=== PATIENT | female | born 1960 | race Caucasian/White ===

== ENCOUNTER → 2021-07-11 09:09 | Outpatient (CLI) | payer BC, SELFPAY ==
--- NOTE | ~2021-07-11 | CT_ITS ---
EXAMINATION: CT lumbar spine wo con DATE: 07/11/2021 09:31 INDICATION: Lumbar radiculopathy. Lumbar degenerative disc disease. TECHNIQUE: Computed tomography (CT) of the lumbar spine was performed without intravenous contrast. A utomated exposure control and iterative reconstruction technique were employed. The dose-length produ ct was 820.69 mGy-cm. COMPARISON: Lumbar spine radiographs 12/10/2003 FINDINGS: There are low-attenuation masses in the adrenal glands measuring up to 2.4 cm on the right, consistent with adenomas. There is 7 degrees levocurvature of lumbar spine. There is 4 mm retrolisth esis of L2 on L3 and L5 on S1. There is moderately decreased disc height at L1-L2 and L2-L3, mildly d ecreased disc height at L3-L4, and severely decreased disc height at L5-S1. The following disc levels are specifically discussed: L1-L2: The disc is bulging with superimposed left central extrusion. There is mild bilateral facet petra int osteoarthritis. There is mild left neural foraminal stenosis. There is mild central canal stenosi s. L2-L3: The disc is bulging. There is mild bilateral facet joint osteoarthritis. There is moderate patti ateral neural foraminal stenosis. There is mild central canal stenosis. L3-L4: The disc is bulging. There is mild bilateral facet joint osteoarthritis. There is mild bilater al neural foraminal stenosis. There is mild central canal stenosis. L4-L5: The disc is bulging. There is severe right and moderate left facet joint osteoarthritis. There is mild bilateral neural foraminal stenosis. There is mild central canal stenosis. L5-S1: The disc is bulging. There is moderate right and severe left facet joint osteoarthritis. There is moderate bilateral neural foraminal stenosis. There is mild central canal stenosis. IMPRESSION: 1. Severe lumbar spondylosis. Reviewed, dictated and finalized at location [facility] [facility]
== END ==
PROVIDERS: PCP Internal Medicine; Visit Provider Physician Assistant
DX: M51.36 Other intervertebral disc degeneration, lumbar region (principal); M47.26 Other spondylosis with radiculopathy, lumbar region
CPT/HCPCS: 72131

== ENCOUNTER 2022-12-01 02:25 | Day surgery (SDC) | payer OTHER, SELFPAY ==
[2022-11-19 14:00] VITALS: BMI 23.8
--- NOTE | 2022-11-19 14:01 | PC.NURSE ---
Report to the Outpatient Waiting Room, entrance under the green pavilion located off [facility], at time _0630_ on date _[id number]_. Planned Procedure Time: _0830_. Time changes happen often and if your time is changed the preop area will call you the afternoon before. - You and your visitor will be asked to self-screen and do not enter if you have any COVID symptoms. - A mask is optional within the hospital at this time. Patients may have clear liquids (water, carbonated beverages, clear teas, apple juice) until 3 hours prior to surgery with a maximum of 20 ounces. - No food from midnight until time of surgery Take the following medications with a SIP of water the morning of surgery: ___Levothyroxine and Liothyronine DO NOT STOP ANY OF YOUR OTHER PRESCRIPTION MEDICATIONS PRIOR TO SURGERY ?EXCEPT THE FOLLOWING Medications to discontinue per physician All vitamins Date to take last take__[id number] Please no make-up, nail kittitian, hairspray, perfume, deodorant, or body powder the day of surgery. No jewelry (including any body piercings) or valuables the day of surgery, leave them at home. Please take a shower or bath the night before, or the morning of, surgery with an antibacterial soap. Wear comfortable, loose fitting clothing. - Jewelry must be removed prior to entering the operating room. Rings and piercings that are not removed may be cut off. - The hospital will not accept responsibility for valuables. - Please leave all valuables, including medications, at home the day of surgery. If you are going home after surgery, a licensed minibus driver must drive you home. - NO public transportation without another adult if you receive anesthesia. - We recommend that an adult stay with you for 24 hours following discharge. - We also recommend that you do not drive, make important decision, drink alcoholic beverages, or take any drugs that were not prescribed by your health care provider for at least 24 hours after your discharge time. Follow any additional instructions given to you from your surgeon. If you or anyone in your household have experienced Covid symptoms in the past week, please notify your surgeon or the nurse liaison at the phone number below for possible testing. Telephone instructions given to __Patient___and asked if any additional questions and then verbalized understanding. Patient advised to call surgeon office or pre surgery nurse liaison [phone] if any additional questions.
[2022-12-01] VITALS (11 sets, daily range): BP systolic 117–139; BP diastolic 71–89; PULSE 70–77; RESP 10–20; TEMP 36.4–37.4; O2SAT 92–100
[2022-12-01 06:49] LABS: Urine Cotinine NEGATIVE
[2022-12-01] MEDS: LACTATED RINGERS 1,000 ML 30 ML IV CONT ×3 (06:55→16:05)
--- NOTE | 2022-12-01 06:58 | WPDANESEPPF ---
Anes - Initial Pre Proc Eval Procedure: Operation Date: 12/01/22 08:30 Proposed Procedures p Reneesejal Guy Abdominoplasty with Liposuction - Laith Luevano MD s Bilateral Breast Mastopexy with Galaflex - Laith Luevano MD Date/Time: 12/01/22 06:58 Surgeon: Laith Luevano MD Pre Op Diagnosis: Breast Ptosis, Skin Laxity Patient Data Age: 62 Gender: F Height: 1.65 m Weight: 65 kg Allergies Allergy/AdvReac Type Severity Reaction Status Date / Time iodine Allergy Severe Rash Verified 12/01/22 06:46 Home Medications Medication Instructions Recorded Confirmed Type alendronate 70 mg tablet 70 mg PO WEEKLY 11/19/22 12/01/22 History ascorbic acid (vitamin C) 500 mg 500 mg PO DAILY 11/19/22 12/01/22 History tablet,extended release (Vitamin C ER) aspirin 81 mg tablet 81 mg PO DAILY 11/19/22 12/01/22 History atorvastatin 10 mg tablet 10 mg PO QAM 11/19/22 12/01/22 History calcium carbonate 600 mg calcium 600 mg PO DAILY 11/19/22 12/01/22 History (1,500 mg) tablet (Calcium) cholecalciferol (vitamin D3) 25 25 mcg PO DAILY 11/19/22 12/01/22 History mcg (1,000 unit) capsule (Vitamin D3) cyanocobalamin (vitamin B-12) 500 500 mcg PO DAILY 11/19/22 12/01/22 History mcg tablet (Vitamin B-12) levothyroxine 88 mcg tablet 88 mcg PO QAM 11/19/22 12/01/22 History liothyronine 5 mcg tablet 5 mcg PO BID 11/19/22 12/01/22 History metoprolol succinate 25 mg 25 mg PO HS 11/19/22 12/01/22 History tablet,extended release 24 hr multivitamin 1 tablet PO DAILY 11/19/22 12/01/22 History Laboratory Tests 12/01/22 06:35 Cotinine Negative Patient hx anesthesia problems: none Family hx anesthesia problems: none Results Review: All pre-operative results and documents have been reviewed as part of the pre-operative evaluation. [facility] Past Medical History Medical History Complete heart block HTN (hypertension) Hyperlipidemia Pacemaker Smoker Social History Social History Smoking packs per day: 0.5 Smoking cigarettes per day: 10.0 Years smoked: 40 Smoking pack-years: 20.00 Smoking status: Former smoker Tobacco type: cigarettes Smoking end date: 08/21/22 Alcohol intake: current Living arrangements: with family Spiritual care concerns: No Anes - Eval Final PreProcedure Day of Procedure 12/01/22 06:58 Patient weight: normal Heart: regular rate and rhythm (paced) Lungs: clear to auscultation Airway: Mallampati scale class II Neurological: alert and oriented Last oral intake: >/= 8 hours ASA classification: II Emergent: no Anesthetic plan: proceed Anesthesia type and monitoring: general ETT and standard monitoring Results Review: All pre-operative results and documents have been reviewed as part of the pre-operative evaluation. Informed Consent: The patient's anesthetic plan and its attendant risks and benefits were discussed with the patient/family/POA. Questions were solicited and answers provided to the satisfaction of the patient/family/POA.
--- NOTE | 2022-12-01 07:27 | WPDHPUPDATE1 ---
History and Physical Update Update Date/Time: 12/01/22 07:27 History and Physical has been reviewed, including an updated exam of the patient. There are NO changes in the patient's condition. Risks, benefits, and alternatives have been discussed and questions answered. Patient agrees to proceed with procedure.
[2022-12-01 08:04] LABS: Hemoglobin 13.9 g/dL (12.0-15.0)
[2022-12-01] MEDS: ceFAZolin 2 GM/D5W 50 ML 2 GM/50 ML BAG IVPB (08:33)
[2022-12-01] MEDS: TRANEXAMIC ACID 1,000MG/ISO100 1,000 MG/100 ML BAG 200 MG IVPB (08:45)
[2022-12-01] MEDS: BUPIVACAINE/EPINEPHRINE 0.5% 50 ML VIAL 60 ML INFILTRATE (12:47)
[2022-12-01] MEDS: LACTATED RINGERS IRRIG 1,000 ML, LIDOCAINE HCL 1% LOCAL INJ 50 ML, EPINEPHrine HCL INJ ... INFILTRATE (13:05)
--- NOTE | 2022-12-01 14:27 | W.PM.PROC2 ---
Procedure Note - Detailed Date of Procedure 12/01/22 Pre-op Diagnosis Breast Ptosis, Skin Laxity Post-op Diagnosis Same Procedure Performed 1. Bilateral breast mastopexy with Galaflex 2. Renee de lis abdominoplasty with suction lipectomy Surgeon Laith Luevano MD Anesthesia General Findings Mastopexy inverted T superior medial pedicle with galaflex Abdominal tissue removed: 2,211 grams Abdominal lipoaspirate: 1,500 cc Description of Procedure She is here today for the above. Previously and again today the risks, benefits, alternatives were discussed in extensive detail. I wanted them to be very realistic about the risks involved as well as expectations. We discussed aftercare and what to monitor for. I was very upfront about the risks of wound breakdown leading to loss of skin, open wounds, and need for additional procedures with permanent abdominal deformity. We discussed DVT/PE risks and management. Made sure answered all of their questions to their satisfaction today and consent was obtained. They were marked in the preoperative holding area with their verification. The patient was taken to the operating room placed supine on the operating table. Anesthesia was provided by anesthesiology. A Ruiz catheter was started. They were prepped and draped in a standard sterile 360 degree fashion. A surgical time-out was taken. Breast Eleven blade was utilized to make a stab incision and infiltrated with low volume tumescent solution. The breast was tailor tacked into place. I tailor tacked the breast into position. I also tacked the vertical [id number] abdominoplasty in place to ensure appropriate breast inset. Placed her in a sitting position. Verified the nipple-areolar location based on preoperative planning as well as intraoperative observations and measurements in full agreement. She was placed supine. I de-epithelialized the pedicle. I then de-epithelialized the inferior breast tissue to create an autoaugmentation flap based on intercostal machine shop worker. I elevated medial and lateral tissue flaps as well for planned closure. The autoaugmentation flap was sutured to the chest wall with 2-0 PDS. Galaflex was soaking on the back table in a betadine solution. This was trimmed and sutured into place to support the breast with 2-0 Vicryl. I closed along the IMF with 2-0 Stratafix. Along the vertical with 2-0 PDS. I closed around the Areola with 3-0 strata fix. 3-0 Monocryl along the vertical. 3-0 Stratafix along the IMF. I finally closed everything with running subcuticular 4-0 Monocryl and tissue glue. Abdomen A thorough abdominal examination was completed. Stab incisions were made and tumescent solution infiltrated. Once adequate time was allowed for hemostasis a 5mm basket cannula was utilized to complete suction lipectomy based on S.A.F.E. technique in multiple planes and passes. There were turned to bilateral lateral decubitus position with care taken to protect them for injury during this process. Suction lipectomy continued to result based on pre-operative planning, intra-operative observation, and rolling pinch test which were in full agreement. A 10 blade was used to make the vertical incision for planned vertical resection. I continued dissection down to the level of fascia. No undermining was completed. A 2 mm blunt cannula with 0.5% bupivicaine was injected deep to the fascia bilaterally. I plicated the diastasis recti using 0 PDO stratafix barbed suture. This was in 2 separate layers using 2 separate sutures as well. I repaired around the umbilicus leaving plenty of room for well-vascularized stalk of the umbilicus with 2-0 PDS. I then flexed the bed and starting from superior to inferior began plication using 2-0 Vicryl to obliterate all space in a standard progressive tension fashion. At the umbilicus I marked out the location of the skin and inset this with 3-0 Monocryl and 4-0 Vicry
[2022-12-01] MEDS: fentaNYL CITRATE INJ (*CRX) 100 MCG/2 ML VIAL 25 MCG IV PUSH ×6 (15:02→16:04)
[2022-12-01] MEDS: diphenhydrAMINE HCl INJ 50 MG/ML VIAL 25 MG IV PUSH (15:39)
--- NOTE | 2022-12-01 16:57 | ADMGEN ---
This patient, Gladis Torres, was admitted to OB 2nd Floor Room 289-00. Patient/family oriented to hospital policies and general routines including ID bracelet, bed and alarms, visiting hours, pain management, procedures, bathroom and other care routines, personal items, smoking policy, room service/diet, and visiting hours. Information on how to activate the Rapid Response Team has been discussed. Patient/Family are encouraged to report perceived risks to care and to ask questions if they do not understand what they are told or what they should do.
[2022-12-01] MEDS: LACTATED RINGERS 1,000 ML 125 ML IV CONT (17:25)
[2022-12-01] MEDS: KETOROLAC 10 MG TABLET PO (17:57)
[2022-12-01] MEDS: carisoprodoL (*CRX) 350 MG TABLET PO (17:57)
[2022-12-01] MEDS: MORPHINE SULFATE (*CRX) 2 MG/ML INJ IV PUSH (20:11)
[2022-12-01] MEDS: METOPROLOL SUCCINATE EXT REL 25 MG TABCR PO (20:22)
[2022-12-01] MEDS: ENOXAPARIN 40 MG/0.4 ML SYRINGE SUB-Q (20:22)
[2022-12-01] MEDS: DOCUSATE SODIUM 100 MG CAPSULE PO (20:22)
[2022-12-02] VITALS: BP 104/65; PULSE 70; RESP 18; TEMP 37.3; O2SAT 98
[2022-12-02 04:30] VITALS: BP 88/57; PULSE 70; RESP 18; O2SAT 95
[2022-12-02 05:30] VITALS: BP 86/55; PULSE 66; RESP 18; TEMP 36.8; O2SAT 98
--- NOTE | 2022-12-02 06:44 | WPDPN ---
Progress Note: A&P Assessment and Plan (1) Skin laxity: Code(s): L57.4 - Cutis laxa senilis Status: Acute Assessment and Plan: Doing well after bilateral mastopexy with Galaflex and Umhfy-pj-[id number] abdominoplasty with suction lipectomy. Will discharge home. Today we had a lengthy discussion about the care. Activity limitations. What to monitor for. What is an emergency and when to dial 911 / proceed to ER. This was a lengthy open ended conversation with her and her . They voiced a clear understanding. Will see her back. Call with any questions or concerns. (2) Localized adiposity: Code(s): E65 - Localized adiposity Status: Acute (3) Breast ptosis: Code(s): N64.81 - Ptosis of breast Status: Acute (4) Smoker: Code(s): F17.200 - Nicotine dependence, unspecified, uncomplicated Status: Acute Assessment and Plan: She understands the critical importance of no nicotine use. Subjective Date/time seen: 12/02/22 06:44 Interval history: She is doing very well after bilateral mastopexy with Galaflex and Tutsr-dm-[id number] abdominoplasty with suction lipectomy. She states pain controlled. No f/c. No n/v. No SOB. No CP. No calf tenderness. Tolerating some PO. Ambulating. Review of Systems Review of Systems: All systems reviewed & are unremarkable except as noted in HPI and below Exam Narrative: Alert & Oriented NOD Respiratory unlabored Bilateral breasts healing well. No signs of infection. No hematoma. No seroma. Good color / cap refill. Abdomen healing well. No signs of infection. No hematoma. No seroma. Good color / cap refill. No calf tenderness. Negative Marcella's Objective Data Vital Signs Vital Signs: Vital Signs - 24 hr 12/01/22 14:50 12/01/22 15:05 12/01/22 15:20 Temperature 36.4 C L Pulse Rate 77 74 70 Respiratory Rate 15 16 11 L Blood Pressure 126/85 123/83 130/83 Pulse Oximetry 100 100 100 Oxygen Delivery Simple Face Mask Simple Face Mask Simple Face Mask Oxygen Flow Rate 8 8 8 12/01/22 15:35 12/01/22 15:50 12/01/22 16:05 Temperature Pulse Rate 70 70 72 Respiratory Rate 10 L 13 14 Blood Pressure 134/83 130/89 139/85 Pulse Oximetry 99 94 96 Oxygen Delivery Room Air Room Air Room Air Oxygen Flow Rate 12/01/22 16:20 12/01/22 16:35 12/01/22 17:00 Temperature Pulse Rate 70 70 Respiratory Rate 10 L 11 L Blood Pressure 136/82 132/79 Pulse Oximetry 92 95 Oxygen Delivery Room Air Room Air Room Air Oxygen Flow Rate 12/01/22 17:00 Temperature 37.4 C Pulse Rate 71 Respiratory Rate 16 Blood Pressure 138/85 Pulse Oximetry 97 Oxygen Delivery Oxygen Flow Rate Intake/Output Intake/Output: Intake & Output 11/29/22 11/30/22 12/01/22 12/02/22 23:59 23:59 23:59 23:59 Intake Total 2050 Output Total 353 Balance 1697 Meds/Results Medications: Active Medications Generic Name Dose Route Start Last Admin Trade Name Freq PRN Reason Stop Dose Admin Alendronate Sodium 70 mg 12/02/22 09:00 Alendronate Sodium 70 Mg Tablet PO WEEKLY [facility] Ascorbic Acid 500 mg 12/02/22 09:00 Ascorbic Acid 500 Mg Tablet PO 01/01/23 08:59 DAILY [facility] Atorvastatin Calcium 10 mg 12/02/22 09:00 Atorvastatin 10 Mg Tablet PO QAM [facility] Calcium Carbonate 500 mg 12/02/22 09:00 Calcium Carbonate (Oscal) 500 Mg Tablet PO 01/01/23 08:59 DAILY [facility] Carisoprodol 350 mg 12/01/22 18:00 12/01/22 17:57 Carisoprodol (*Crx) 350 Mg Tablet PO 350 mg Q6HR [facility] Administration Cyanocobalamin 500 mcg 12/02/22 09:00 Cyanocobalamin 500 Mcg Tablet PO DAILY [facility] Diazepam 5 mg 12/01/22 14:42 Diazepam (*Crx) 5 Mg Tablet PO TID PRN Anxiety Docusate Sodium 100 mg 12/01/22 21:00 12/01/22 20:22 Docusate Sodium 100 Mg Capsule PO 100 mg Q12HR [facility] Administration Enoxaparin Sodium 40 mg 12/01/22 20:00 12/01/22 20:22 En
--- NOTE | 2022-12-02 06:49 | PM.DS ---
DS: Admitting Diagnosis Discharge Date 12/02/2022 Admitting Diagnosis Skin laxity, localized adiposity, breast ptosis. DS: Discharge Diagnosis Discharge Diagnosis (1) Skin laxity: Code(s): L57.4 - Cutis laxa senilis Status: Acute (2) Localized adiposity: Code(s): E65 - Localized adiposity Status: Acute (3) Breast ptosis: Code(s): N64.81 - Ptosis of breast Status: Acute (4) Smoker: Code(s): F17.200 - Nicotine dependence, unspecified, uncomplicated Status: Acute DS: Summary Hospital Course Hospital Course: Underwent bilateral mastopexy with Galaflex and Ipnfu-sa-zxu abdominoplasty with suction lipectomy. Post-operatively has done well. Will discharge home. Time Spent with Patient Time attestation: Total time spent providing and/or coordinating discharge services: Exam Narrative: Alert & Oriented NOD Respiratory unlabored Bilateral breasts healing well. No signs of infection. No hematoma. No seroma. Good color / cap refill. Abdomen healing well. No signs of infection. No hematoma. No seroma. Good color / cap refill. No calf tenderness. Negative Marcella's DS: Data Data Completed and Pending Labs on day of discharge: Labs from last 24 hours 12/01/22 12/01/22 07:55 06:35 Hgb 13.9 Hct 42.0 Cotinine Negative Discharge Plan Discharge Patient Disposition: Home, Self-Care Discharge Instructions: POST OPERATIVE DISCHARGE INSTRUCTIONS LAITH LUEVANO M.D. [facility] [address] [place] [address] [address] for 24 hours after anesthesia and while you are taking pain medication. Take all prescribed medication as directed Diet as tolerated. No lifting or activity that raises blood pressure for 48 hours. Regular walking / ambulation. May shower 24 hours after surgery. Once you shower do not take pain medication before showering as the combination of medication and heat may cause you to feel dizzy or pass out. No pools or tubs for 2 weeks. Slowly stand up straight as tolerated. No straining or lifting more than 20 pounds. If no bowel movement within 24 hours may use laxative. Call with any questions or concerns. Dressing Care: Continue abdominal binder / foam and surgial bra 23 hours per day. No nicotine use at any time / avoid second hand exposure as well. If you have any questions or concerns, please call the office . If it is after hours you will be directed to the senior controls analyst exchange. Shortness of breath, chest pain, or other medical emergency dial 911 / proceed to the Emergency Room. Stand Alone Forms: General Discharge Instructions Follow-up/Referrals: Laith Luevano MD [Physician] - 1 Week Discharge Medications: Continued multivitamin Tablet 1 tablet PO DAILY atorvastatin 10 mg tablet 10 mg PO QAM alendronate 70 mg tablet 70 mg PO WEEKLY Rx Instructions: Wednesdays liothyronine 5 mcg tablet 5 mcg PO BID levothyroxine 88 mcg tablet 88 mcg PO QAM calcium carbonate [Calcium 600] 600 mg calcium (1,500 mg) Tablet 600 mg PO DAILY cyanocobalamin (vitamin B-12) [Vitamin B-12] 500 mcg Tablet 500 mcg PO DAILY aspirin 81 mg Tablet 81 mg PO DAILY metoprolol succinate 25 mg tablet extended release 24 hr 25 mg PO HS ascorbic acid (vitamin C) [Vitamin C] 500 mg Tablet Extended Release 500 mg PO DAILY cholecalciferol (vitamin D3) [Vitamin D3] 25 mcg (1,000 unit) Capsule 25 mcg PO DAILY
--- NOTE | 2022-12-02 07:47 | WPDANESPN ---
Anes - Prog Note Post-Op Date/Time: 12/02/22 07:47 Cardiovascular status: normal Respiratory status: normal Airway patency: baseline Mental status: baseline Post-Op hydration status: normal Vital Signs: Last Vital Signs Temp 37.4 C 12/01/22 17:00 Pulse 71 12/01/22 17:00 Resp 16 12/01/22 17:00 BP 138/85 12/01/22 17:00 Pulse Ox 97 12/01/22 17:00 O2 Del Method Room Air 12/01/22 17:00 O2 Flow Rate 8 12/01/22 15:20 Pain Score (VAS): 2/10 I/O: Intake & Output 12/01/22 12/01/22 12/02/22 15:59 23:59 07:59 Intake Total 1150 900 Output Total 353 Balance 1150 547 Laboratory Tests 12/01/22 07:55 12/01/22 07:55 Hgb 13.9 Hct 42.0 Post-procedural complaints: none Patient Feedback: Patient satisfied with anesthetic care.
[2022-12-02] MEDS: ALENDRONATE SODIUM 70 MG TABLET PO (07:56)
[2022-12-02] MEDS: DOCUSATE SODIUM 100 MG CAPSULE PO (07:57)
[2022-12-02] MEDS: CHOLECALCIFEROL 1,000 UNITS TABLET 1000 UNITS PO (07:57)
[2022-12-02] MEDS: CALCIUM CARBONATE (OSCAL) 500 MG TABLET PO (07:57)
[2022-12-02] MEDS: ASCORBIC ACID 500 MG TABLET PO (07:57)
[2022-12-02] MEDS: LIOTHYRONINE SODIUM 5 MCG TABLET PO (07:58)
[2022-12-02] MEDS: ATORVASTATIN 10 MG TABLET PO (07:58)
[2022-12-02] MEDS: CYANOCOBALAMIN 500 MCG TABLET PO (08:09)
[2022-12-02 08:20] VITALS: BP 104/61; PULSE 70; RESP 18; TEMP 37.7; O2SAT 98
[2022-12-02] MEDS: MULTIVITAMINS THERAPEUTIC TAB (*BKC) 1 TABLET PO (08:20)
[2022-12-02] MEDS: carisoprodoL (*CRX) 350 MG TABLET PO (08:20)
[2022-12-02] MEDS: oxyCODONE/ACETAMINOPHEN (*CRX) 5-325 MG TABLET PO (10:03)
--- NOTE | 2022-12-02 15:10 | PC.NURSE ---
Paper documentation exists on this patient due to [employer] downtime on 12/01/22 from 1900 to 0700 .
== END 2022-12-02 10:23 | disposition home or self-care (01) ==
LOC: ANHSURGERY 14:45 → ANHOB2 16:50
PROVIDERS: Anesthesiology; Visit Provider Surgery Plastic and Reconstructive Surgery
PROC: (CPT 19316; principal; 2022-12-01 08:30)
PROC: (CPT 19316; 2022-12-01 08:30)
DX: Z41.1 Encounter for cosmetic surgery (principal); L57.4 Cutis laxa senilis; E65 Localized adiposity; N64.81 Ptosis of breast; I10 Essential (primary) hypertension; E78.5 Hyperlipidemia, unspecified; I44.2 Atrioventricular block, complete; Z95.0 Presence of cardiac pacemaker; Z87.891 Personal history of nicotine dependence; Z79.82 Long term (current) use of aspirin; Z79.899 Other long term (current) drug therapy
CPT/HCPCS: 19316; 15777 ×2; 15830; 15847; 15877; 80307; 85014; 85018; 99199; A9270; J0171; J0330; J0690; J1100; J1170; J1200; J1580; J1650; J2250; J2270; J2405; J2704; J3010; J7120

== ENCOUNTER 2022-12-16 14:04 | Outpatient (NON) | payer BC, SELFPAY | END 2022-12-16 14:05 | disposition home or self-care (01) | LOC: ANHLAB 14:04 | PROVIDERS: Visit Provider Surgery Plastic and Reconstructive Surgery | DX: L02.216 Cutaneous abscess of umbilicus (principal) | CPT/HCPCS: 87070; 87075; 87205 ==